=== PATIENT | female | born 1945 | race Caucasian/White ===

== ENCOUNTER 2022-01-14 15:36 | Inpatient (IN) ==
[2022-01-14 16:38] LABS: ABS Lymphocytes 0.5 10^3/ul (1.0-4.8); ABS Monocytes 0.2 10^3/ul (0-0.8); ABS Neutrophils 2.2 10^3/ul (1.5-7.7); Eosinophil % 0.7 %; Hematocrit 38 % (35-47); Hemoglobin 13.1 g/dL (12.0-16.0); Lymphocyte % 17.1 %; Mean Corpuscular HGB Conc 34 g/dL (31-36); Mean Corpuscular Hemoglobin 35 pg (27-31); Mean Corpuscular Volume 103 fL (80-97); Mean Platelet Volume 7.5 fL (7.4-10.4); Nucleated Red Blood Cells % 0.1; Platelet Count 225 10^3/uL (150-450); Red Blood Count 3.71 10^6 /uL (3.70-4.87); Red Cell Distribution Width 13 % (10-15)
[2022-01-14 17:10] LABS: Albumin 4.6 g/dL (3.2-5.2); Anion Gap 7 mmol/L (2-11); CO2 Carbon Dioxide 27 mmol/L (22-32); Chloride 95 mmol/L (101-111); Potassium 4.5 mmol/L (3.5-5.0); Sodium 129 mmol/L (135-145)
[2022-01-14 17:16] LABS: ALT 18 U/L (7-52); AST 27 U/L (13-39); Albumin/Globulin Ratio 1.7 (1-3); Alkaline Phosphatase 27 U/L (35-149); Blood Urea Nitrogen 6 mg/dL (6-24); C Reactive Protein < 1.00 mg/L (<8.01); Globulin 2.7 g/dL (2-4); Glucose 92 mg/dL (70-100); Lipase 14 U/L (11.0-82.0); Total Protein 7.3 g/dL (6.4-8.9); eGFR CKD-EPI 86.2 (>60)
[2022-01-14] MEDS ORDERED: Iohexol 350 (CONTRAST) 500 ML MDV IV ONE (17:23)
[2022-01-14] MEDS ORDERED: NS 0.9% 1000 ml BAG 1,000 ML IV SCH (23:45)
[2022-01-15] MEDS: Enoxaparin 40 MG/0.4 ML SYR SUBCUT SCH ×2 (00:09→20:23)
[2022-01-15] MEDS ORDERED: ZALEPLON 5 MG PO PRN (00:22)
[2022-01-15] MEDS ORDERED: Polyethyl Glycol/Propylene Gly OPHTH.SOLN BOTH EYES PRN (00:22)
[2022-01-15] MEDS ORDERED: ZALEPLON 5 MG PO ONE (03:11)
[2022-01-15 04:07] LABS: Urine Appearance Clear; Urine Bilirubin Negative (Negative); Urine Blood Negative (Negative); Urine Color Straw; Urine Glucose Negative (Negative); Urine Ketones 1+ (Negative); Urine Nitrite Negative (Negative); Urine Protein Negative (Negative); Urine Urobilinogen Negative (Negative)
[2022-01-15 05:51] LABS: ABS Basophils 0.1 10^3/ul (0-0.2); ABS Lymphocytes 0.4 10^3/ul (1.0-4.8); ABS Monocytes 0.2 10^3/ul (0-0.8); ABS Neutrophils 1.7 10^3/ul (1.5-7.7); Eosinophil % 1.4 %; Hematocrit 37 % (35-47); Hemoglobin 12.5 g/dL (12.0-16.0); Lymphocyte % 18.5 %; Mean Corpuscular HGB Conc 34 g/dL (31-36); Mean Corpuscular Hemoglobin 35 pg (27-31); Mean Corpuscular Volume 102 fL (80-97); Nucleated Red Blood Cells % 0.1; Platelet Count 214 10^3/uL (150-450); Red Blood Count 3.58 10^6 /uL (3.70-4.87); Red Cell Distribution Width 13 % (10-15); White Blood Count 2.4 10^3/uL (3.5-10.8)
[2022-01-15 05:56] LABS: INR 1.18 (0.89-1.11)
[2022-01-15 06:37] LABS: ALT 17 U/L (7-52); AST 24 U/L (13-39); Albumin/Globulin Ratio 1.7 (1-3); Alkaline Phosphatase 27 U/L (35-149); Anion Gap 11 mmol/L (2-11); Blood Urea Nitrogen 6 mg/dL (6-24); C Reactive Protein < 1.00 mg/L (<8.01); CO2 Carbon Dioxide 25 mmol/L (22-32); Calcium 8.6 mg/dL (8.6-10.3); Chloride 97 mmol/L (101-111); Globulin 2.3 g/dL (2-4); Glucose 63 mg/dL (70-100); Potassium 3.9 mmol/L (3.5-5.0); Sodium 133 mmol/L (135-145); Total Protein 6.3 g/dL (6.4-8.9); eGFR CKD-EPI 92.3 (>60)
[2022-01-15] MEDS ORDERED: D5LR 1000 ml BAG 1,000 ML IV SCH (08:00)
[2022-01-15] MEDS: Vitamin THERAPEUTIC TAB PO SCH (08:08)
[2022-01-15] MEDS ORDERED: Fluticasone NASAL SPRAY 50MCG 16 gm SPRAY BTL INTRANASAL SCH ×2 (09:00→21:00)
[2022-01-15] MEDS ORDERED: PEG 3000 GI LAVAGE 1 GALLON PO ONE (14:54)
[2022-01-15] MEDS ORDERED: Pantoprazole VIAL 40 MG VIAL IV ONE (19:18)
[2022-01-16 07:07] LABS: Calcium 8.1 mg/dL (8.6-10.3); Magnesium 1.9 mg/dL (1.9-2.7); Potassium 3.9 mmol/L (3.5-5.0); eGFR CKD-EPI 92.7 (>60)
[2022-01-16] MEDS: Vitamin THERAPEUTIC TAB PO SCH (10:32)
[2022-01-16 13:04] LABS: HIV 4th Generation Nonreactive (Nonreactive)
[2022-01-16 13:11] LABS: Urine Osmo 386 mOsm/kg (150-1150)
[2022-01-16 13:19] VITALS: BP 125/78
[2022-01-18] MEDS ORDERED: Alendronate 70 mg TAB (NF) PO SCH (09:00)
[2022-01-19 20:08] LABS: Zinc, S 69 mcg/dL (60-106)
== END 2022-01-16 16:40 | disposition home or self-care (01) | DRG 392 ==
LOC: ED 15:36 → SUATTDRO 23:42 → EDHOLD 23:42 → SSU 01-15 03:10
PROVIDERS: ADMIT Internal Medicine; ATTEND Internal Medicine

== ENCOUNTER 2023-12-17 16:33 | Inpatient (IN) ==
[2023-12-17] MEDS: LACTATED RINGERS SEPSIS IV ONE (17:18)
[2023-12-17 17:40] LABS: Hematocrit 28.3 % (35-45); Hemoglobin 9.9 g/dL (11.5-14.3); Mean Corpuscular Hemoglobin 34.7 pg (27-33); Mean Corpuscular Hgb Conc 34.9 g/dL (31-36); Mean Corpuscular Volume 99.4 fL (80-97); Mean Platelet Volume 7.7 fL (7.5-11.2); Platelet Count 196 10^3/uL (150-450); Red Blood Count 2.84 10^6/uL (3.63-4.92); Red Cell Distribution Width 14.3 % (12-17); White Blood Count 5.7 10^3/uL (3.8-11.8)
[2023-12-17 18:09] LABS: ABS Lymphocytes 0.2 10^3/uL (1.0-4.8); ABS Monocytes 0.1 10^3/uL (0.0-0.9); ABS Neutrophils 5.3 10^3/uL (1.5-7.6); Eosinophil % 0.1 %; Lymphocyte % 3.8 %
[2023-12-17 18:14] LABS: Albumin 3.2 g/dL (3.2-5.2); C Reactive Protein 218.4 mg/L (<8.01); Creatinine, Serum 0.6 mg/dL (0.51-0.95); Globulin 3.2 g/dL (2-4); Total Bilirubin 0.7 mg/dL (0.2-1.0); Total Protein 6.4 g/dL (6.4-8.9)
[2023-12-17 18:57] LABS: INR 1.23 (0.85-1.14)
[2023-12-17 19:06] LABS: Urine Appearance Clear; Urine Bilirubin Negative (Negative); Urine Blood Negative (Negative); Urine Color Yellow; Urine Glucose Negative (Negative); Urine Ketones 1+ (Negative); Urine Nitrite Negative (Negative); Urine Protein 1+ (>=30 mg/dL) (Negative); Urine Specific Gravity 1.035 (1.002-1.030); Urine Urobilinogen 1+ (Negative); Urine pH 6.5 (5.0-8.0)
[2023-12-17 19:15] LABS: High Sensitivity Troponin 1 Hr 23 pg/mL (<15)
[2023-12-17 19:18] LABS: Urine Bacteria Absent /HPF (Absent); Urine Red Blood Cell 1+(3-5/hpf) /HPF (0-Trace); Urine White Blood Cell Trace(0-5/hpf) /HPF (0-Trace)
[2023-12-17] MEDS: Piperacillin/Tazobac 3.375 BAG 3.375 GM/100 ML BAG IV ONE (19:27)
[2023-12-17] MEDS: Iohexol 300 (CONTRAST) 10 ML SDV IV ONE (20:36)
[2023-12-17] MEDS: Vancomycin 1,000 MG in NS 0.9% 250 ml 250 ML IVPB ONE (21:41)
[2023-12-18 04:35] LABS: Hematocrit 24.7 % (35-45); Hemoglobin 8.5 g/dL (11.5-14.3); Mean Corpuscular Hgb Conc 34.4 g/dL (31-36); Mean Corpuscular Volume 98.8 fL (80-97); Mean Platelet Volume 7.5 fL (7.5-11.2); Platelet Count 162 10^3/uL (150-450); Red Blood Count 2.49 10^6/uL (3.63-4.92); Red Cell Distribution Width 14.5 % (12-17); White Blood Count 3.8 10^3/uL (3.8-11.8)
[2023-12-18 05:12] LABS: Anion Gap 10 mmol/L (2-16); Blood Urea Nitrogen 26 mg/dL (6-24); CO2 Carbon Dioxide 24 mmol/L (22-32); Calcium 7.4 mg/dL (8.6-10.3); Chloride 102 mmol/L (101-111); Creatinine, Serum 0.51 mg/dL (0.51-0.95); Glucose 105 mg/dL (70-100); Potassium 4.5 mmol/L (3.5-5.0); Sodium 136 mmol/L (135-145); eGFR CKD-EPI 96.7 (>60)
[2023-12-18 07:00] LABS: ABS Lymphocytes 0.3 10^3/uL (1.0-4.8); ABS Monocytes 0.3 10^3/uL (0.0-0.9); ABS Neutrophils 3.2 10^3/uL (1.5-7.6); Eosinophil % 0.4 %; Lymphocyte % 8.3 %; Nucleated Red Blood Cells % 0.1 %/100WBC (0.0-0.8)
[2023-12-18] MEDS: cefTRIAXone 1 gm/50 mL D5W 1 GM/50 ML BAG IV SCH (09:02)
[2023-12-18] MEDS: Enoxaparin 40 MG/0.4 ML SYR SUBCUT SCH (09:05)
[2023-12-18] MEDS: Polyethylene Glycol 3350 17 GM PACKET PO SCH (09:08)
[2023-12-18] MEDS: Azithromycin 250 MG in NS 0.9% 250 ml 250 ML IVPB SCH (09:31)
[2023-12-18] MEDS: RIVASTIGMINE 13.3 MG/24 HR TOPICAL SCH (09:34)
[2023-12-18 09:42] LABS: Vitamin B12 > 1450 pg/mL (180-914)
[2023-12-18 09:43] LABS: Folate > 20.00 ng/mL (5.90-24.80)
[2023-12-19] MEDS: cefTRIAXone 1 gm/50 mL D5W 1 GM/50 ML BAG IV SCH (07:53)
[2023-12-19] MEDS: Azithromycin 250 MG in NS 0.9% 250 ml 250 ML IVPB SCH (08:55)
[2023-12-19 09:09] LABS: ABS Lymphocytes 0.8 10^3/uL (1.0-4.8); ABS Monocytes 0.3 10^3/uL (0.0-0.9); ABS Neutrophils 3.4 10^3/uL (1.5-7.6); ABS Nucleated RBC 0.01 10^3/ul; Eosinophil % 0.7 %; Hemoglobin 9.2 g/dL (11.5-14.3); Lymphocyte % 17.5 %; Mean Corpuscular Hemoglobin 35.1 pg (27-33); Mean Corpuscular Hgb Conc 35.4 g/dL (31-36); Mean Corpuscular Volume 99.4 fL (80-97); Mean Platelet Volume 7.6 fL (7.5-11.2); Nucleated Red Blood Cells % 0.1 %/100WBC (0.0-0.8); Platelet Count 194 10^3/uL (150-450); Red Blood Count 2.62 10^6/uL (3.63-4.92); Red Cell Distribution Width 14.3 % (12-17); White Blood Count 4.5 10^3/uL (3.8-11.8)
[2023-12-19] MEDS: Influenza Vaccine *TRI* 2024-25* 0.5 ML SYRINGE IM ONE (09:12)
[2023-12-19 09:48] LABS: Calcium 7.2 mg/dL (8.6-10.3); Creatinine, Serum 0.53 mg/dL (0.51-0.95); Potassium 4.2 mmol/L (3.5-5.0); eGFR CKD-EPI 95.8 (>60)
[2023-12-21 10:57] LABS: Calcium 7.6 mg/dL (8.6-10.3); Creatinine, Serum 0.57 mg/dL (0.51-0.95); Magnesium 2.2 mg/dL (1.9-2.7); Potassium 4.3 mmol/L (3.5-5.0); eGFR CKD-EPI 94.1 (>60)
[2023-12-21] MEDS: Enoxaparin 40 MG/0.4 ML SYR SUBCUT ONE (20:33)
[2023-12-22 12:46] LABS: High Sensitivity Troponin 1 Hr 4 pg/mL (<15)
[2023-12-22 13:07] LABS: Ferritin 319.9 ng/mL (11-307)
[2023-12-22] MEDS: Iohexol 350 (CONTRAST) 500 ML MDV IV ONE (15:26)
[2023-12-23 06:04] LABS: Hematocrit 28.2 % (35-45); Hemoglobin 9.8 g/dL (11.5-14.3); Mean Corpuscular Hemoglobin 34.2 pg (27-33); Mean Corpuscular Hgb Conc 34.6 g/dL (31-36); Mean Corpuscular Volume 98.7 fL (80-97); Mean Platelet Volume 6.8 fL (7.5-11.2); Platelet Count 351 10^3/uL (150-450); Red Blood Count 2.86 10^6/uL (3.63-4.92); Red Cell Distribution Width 14.1 % (12-17); White Blood Count 4.7 10^3/uL (3.8-11.8)
[2023-12-23 06:20] LABS: Calcium 8.6 mg/dL (8.6-10.3); Creatinine, Serum 0.5 mg/dL (0.51-0.95); Magnesium 1.9 mg/dL (1.9-2.7); Potassium 4.2 mmol/L (3.5-5.0); eGFR CKD-EPI 97.1 (>60)
[2023-12-23 07:07] LABS: ABS Eosinophils 0.1 10^3/uL (0.0-0.5); ABS Lymphocytes 1.4 10^3/uL (1.0-4.8); ABS Monocytes 0.5 10^3/uL (0.0-0.9); ABS Neutrophils 2.7 10^3/uL (1.5-7.6); ABS Nucleated RBC 0.01 10^3/ul; Eosinophil % 1.1 %; Lymphocyte % 29.6 %; Nucleated Red Blood Cells % 0.1 %/100WBC (0.0-0.8)
[2023-12-23] MEDS: RIVASTIGMINE 4.6 MG TRANSDERM SCH (07:36)
[2023-12-23] MEDS ORDERED: Sulfur Hexaflouride MICROSPHR 25 MG VIAL IV PRN (08:45)
[2023-12-23] MEDS: DOXYcycline 100 MG in NS 0.9% 250 ml 250 ML IVPB SCH (17:52)
[2023-12-24 07:48] LABS: Hematocrit 25.7 % (35-45); Hemoglobin 9.2 g/dL (11.5-14.3); Mean Corpuscular Hemoglobin 35.2 pg (27-33); Mean Corpuscular Hgb Conc 35.6 g/dL (31-36); Mean Corpuscular Volume 98.8 fL (80-97); Mean Platelet Volume 6.7 fL (7.5-11.2); Platelet Count 342 10^3/uL (150-450); Red Cell Distribution Width 14.4 % (12-17); White Blood Count 5.1 10^3/uL (3.8-11.8)
[2023-12-24 08:14] LABS: Creatinine, Serum 0.53 mg/dL (0.51-0.95); Magnesium 1.9 mg/dL (1.9-2.7); Potassium 4.3 mmol/L (3.5-5.0); eGFR CKD-EPI 95.8 (>60)
[2023-12-24 08:32] LABS: ABS Eosinophils 0.1 10^3/uL (0.0-0.5); ABS Lymphocytes 1.2 10^3/uL (1.0-4.8); ABS Monocytes 0.6 10^3/uL (0.0-0.9); ABS Neutrophils 3.2 10^3/uL (1.5-7.6); Eosinophil % 1.2 %; Lymphocyte % 23.2 %
[2023-12-24 14:04] LABS: IgG Immunoblot Negative (Negative); IgM Immunoblot Negative (Negative)
[2023-12-25 00:46] LABS: Anaplasma phagocytophilum Positive (Negative); B. miyamotoi PCR, B Negative (Negative); Babesia divergens/MO-1 Negative (Negative); Babesia ducani Negative (Negative); Ehrlichia chaffeensis Negative (Negative); Ehrlichia ewingii/canis Negative (Negative); Ehrlichia muris eauclairensis Negative (Negative)
[2023-12-25] MEDS: NS 0.9% 500 ml BAG 500 ML IV ONE (10:30)
[2023-12-25] MEDS: Lidocaine 1% VIAL 10 MG/ML 30 ML VIAL INJ ONE (11:55)
[2023-12-25 12:11] LABS: Hematocrit 26.5 % (35-45); Hemoglobin 9.3 g/dL (11.5-14.3); Mean Corpuscular Hgb Conc 35.1 g/dL (31-36); Mean Corpuscular Volume 99.8 fL (80-97); Mean Platelet Volume 6.5 fL (7.5-11.2); Platelet Count 373 10^3/uL (150-450); Red Blood Count 2.65 10^6/uL (3.63-4.92); Red Cell Distribution Width 15.1 % (12-17); White Blood Count 5.1 10^3/uL (3.8-11.8)
[2023-12-25 12:45] LABS: ABS Eosinophils 0.1 10^3/uL (0.0-0.5); ABS Lymphocytes 1.2 10^3/uL (1.0-4.8); ABS Monocytes 0.7 10^3/uL (0.0-0.9); ABS Neutrophils 3.2 10^3/uL (1.5-7.6); Eosinophil % 1.1 %; Large Platelets Present; Lymphocyte % 22.8 %; Nucleated Red Blood Cells % 0.1 %/100WBC (0.0-0.8); RBC Morphology Normal (Normal)
[2023-12-25 13:01] LABS: Calcium 8.1 mg/dL (8.6-10.3); Creatinine, Serum 0.52 mg/dL (0.51-0.95); Magnesium 1.9 mg/dL (1.9-2.7); Potassium 4.6 mmol/L (3.5-5.0); eGFR CKD-EPI 96.2 (>60)
[2023-12-25] MEDS: Lidocaine 1% VIAL 10 MG/ML 30 ML VIAL ONE (13:56)
[2023-12-26 17:19] VITALS: BP 141/79
[2023-12-26] MEDS: Lidocaine 2.5%/Prilocain 2.5% 5 GM TUBE TOPICAL ONE (22:14)
[2023-12-29 06:24] LABS: Hematocrit 29.3 % (35-45); Mean Corpuscular Hemoglobin 34.1 pg (27-33); Mean Corpuscular Hgb Conc 34.1 g/dL (31-36); Mean Corpuscular Volume 99.9 fL (80-97); Mean Platelet Volume 6.6 fL (7.5-11.2); Platelet Count 399 10^3/uL (150-450); Red Blood Count 2.93 10^6/uL (3.63-4.92); Red Cell Distribution Width 15.8 % (12-17); White Blood Count 3.8 10^3/uL (3.8-11.8)
[2023-12-29 10:17] LABS: Rapid COVID-19 Molecular Undetected (Undetected)
== END 2023-12-29 13:50 | DRG 871 ==
LOC: ED 16:33 → EDHOLD 22:13 → SUATTDRO 22:13 → MED 12-18 14:11 → MEDTELE 12-23 18:28 → ICU 12-25 10:42 → MED 12-26 18:34
PROVIDERS: ADMIT Internal Medicine; ATTEND Hospitalist